=== PATIENT | female | born 1935 | race Caucasian/White ===

== ENCOUNTER 2019-12-20 14:44 | Emergency (ER) | payer MEDICARE ==
[~2019-12-20] VITALS: Ht 160 cm; Wt 51.5 kg
--- NOTE | 2019-12-20 14:58 | NUR ---
EKG DONE IN TRIAGE
[2019-12-20 15:22] LABS: BASOPHILS % (AUTO) 0 % (0-1); EOSINOPHILS % (AUTO) 0 % (1-7); LYMPHOCYTES % (AUTO) 24 % (22-44); MEAN CORPUSCULAR HEMOGLOBIN 31.2 pg (27.0-34.8); MEAN CORPUSCULAR HGB CONC 32.7 g/dL (32.4-35.8); MEAN PLATELET VOLUME 7.1 fL (7.4-10.4); MONOCYTES % (AUTO) 9 % (2-9); NEUTROPHILS % (AUTO) 67 % (42-75); PLATELET COUNT 190 x10^3/uL (130-400); RED BLOOD COUNT 4.39 x10^6/uL (3.82-5.3); RED CELL DISTRIBUTION WIDTH 13.4 % (9.6-15.2)
[2019-12-20 15:24] LABS: MD NO
[2019-12-20 15:29] LABS: ALANINE AMINOTRANSFERASE 22 U/L (12-78); ALBUMIN 4.3 g/dL (3.4-5.0); ANION GAP 4 mmol/L (5-15); CALCIUM 9.5 mg/dL (8.5-10.1); CHLORIDE 107 mmol/L (98-107); CREATININE 0.98 mg/dL (0.55-1.02)
[2019-12-20 15:32] LABS: ALKALINE PHOSPHATASE 65 U/L (45-117); BILIRUBIN,TOTAL 1.2 mg/dL (0.2-1.0); TOTAL PROTEIN 7.6 g/dL (6.4-8.2); TROPONIN I < 0.015 ng/mL (0.000-0.045)
[2019-12-20] MEDS ORDERED: MECLIZINE CHEWABLE 25 MG TAB ONE (17:38)
--- NOTE | 2019-12-20 17:40 | NUR ---
FRONT COUNTER ATTENDANT PER MAR
[2019-12-20 17:42] VITALS: BP 169/74
[2019-12-20] MEDS ORDERED: MECLIZINE CHEWABLE 25 MG TAB PO ONE (18:00)
--- NOTE | 2019-12-20 18:39 | NUR ---
PROVIDER AT BEDSIDE TO UPDATE PT ON POC.
--- NOTE | 2019-12-20 19:18 | NUR ---
BREAK RN: PT. ABLE TO AMBULATE UP/DOWN HALLWAY WITH STEADY GAIT AND NO DISTRESS NOTED. DENIES ANY DIZZINESS THROUGHOUT. PT. REQUESTING TO D/C HOME. DR. YARA NOGUEIRA AND PT. TO BE D/C.
== END 2019-12-20 20:03 | disposition home or self-care (01) ==
LOC: ED 19:24
DX: R07.89 Other chest pain (principal); R42 Dizziness and giddiness
CPT/HCPCS: 36415; 71045; 80053; 84484; 85025; 93005; 99285

== ENCOUNTER → 2020-06-09 | Outpatient (CLI) | payer MEDICARE | END | disposition home or self-care (01) | LOC: CFH 13:17 | PROVIDERS: ATTEND Internal Medicine Cardiovascular Disease | DX: I08.3 Combined rheumatic disorders of mitral, aortic and tricuspid valves (principal); Z95.2 Presence of prosthetic heart valve | CPT/HCPCS: 93306 ==